=== PATIENT | female | born 1930 | race Caucasian/White ===

== ENCOUNTER 2018-09-02 14:55 | Emergency (ER) | payer SELFPAY ==
[~2018-09-02] VITALS: Ht 152.4 cm; Wt 86.0 kg
[2018-09-02] MEDS ORDERED: KETOROLAC 30MG/ML VIAL IM ONE (15:45)
[2018-09-02 16:43] VITALS: BP 160/61
== END 2018-09-02 16:40 | disposition home or self-care (01) ==
LOC: ER 14:55
DX: S46.811A Strain of other muscles, fascia and tendons at shoulder and upper arm level, right arm, initial encounter (principal); E11.9 Type 2 diabetes mellitus without complications; I10 Essential (primary) hypertension; X58.XXXA Exposure to other specified factors, initial encounter; Y93.89 Activity, other specified; Y92.89 Other specified places as the place of occurrence of the external cause; Y99.8 Other external cause status
CPT/HCPCS: 96372; 99283; J1885

== ENCOUNTER 2020-12-27 17:24 | Inpatient (IN) | payer MEDICAID ==
[~2020-12-27] VITALS: Ht 142.2 cm; Wt 81.2 kg
[2020-12-27 18:34] LABS: EOSINOPHILS % 2.7 % (0.0-5.0); HEMATOCRIT. 36.1 % (36.0-48.0); HEMOGLOBIN. 11.9 g/dL (12.0-16.0); LYMPHOCYTES % 23.3 % (20.0-50.0); MEAN CORPUSCULAR HEMOGLOBIN 28.5 pg (28.0-32.0); MEAN CORPUSCULAR VOLUME 86.9 fL (81.0-99.0); MEAN PLATELET VOLUME 8.9 fl (7.4-10.4); MONOCYTES % 6.8 % (2.0-8.0); NEUTROPHILS % 66.2 % (40.0-76.0); PLATELET 286 x1000/uL (130-400); RED BLOOD CELL COUNT 4.16 mill/uL (4.2-5.4)
[2020-12-27 18:37] LABS: CHLORIDE 108 mEq/L (98-107); INR 1.1
[2020-12-27] MEDS ORDERED: ATROPINE SULFATE 1MG/ML VIAL IV ONE (20:30)
[2020-12-27] MEDS ORDERED: ATROPINE SULFATE 1MG/10ML SYR IV ONE (21:15)
[2020-12-27] MEDS ORDERED: DEXTROSE 50% WATER 50ML SYRINGE IV NR (23:45)
[2020-12-28] VITALS (44 sets, daily range): BP systolic 111–230; BP diastolic 35–182
[2020-12-28] MEDS: HYDRALAZINE 20MG/ML VIAL IV PRN ×2 (07:06→12:09)
[2020-12-28] MEDS ORDERED: ACETAMINOPHEN 325MG TABLET PO PRN (08:15)
[2020-12-28] MEDS ORDERED: ONDANSETRON HCL 4MG/2ML INJ IV PRN (08:15)
[2020-12-28] MEDS ORDERED: DEXTROSE 50% WATER 50ML SYRINGE IV PRN (08:15)
[2020-12-28] MEDS: INSULIN LISPRO 100 UNITS/ML SUBCUT SCH ×4 (08:20→21:00)
[2020-12-28] MEDS: AMLODIPINE 10MG TABLET PO SCH (10:17)
[2020-12-28 10:34] LABS: HDL CHOLESTEROL 50 mg/dL (40-59); LDL CHOLESTEROL 47 mg/dL (5-100)
[2020-12-28] MEDS ORDERED: MV-M1TAB19 PO (11:09)
[2020-12-28] MEDS ORDERED: ASPI-1497 PO (11:09)
[2020-12-28] MEDS ORDERED: ALEN70TA79 PO (11:09)
[2020-12-28] MEDS ORDERED: AMLO5TAB4 PO (11:09)
[2020-12-28] MEDS ORDERED: ATOR40TA70 PO (11:09)
[2020-12-28] MEDS ORDERED: INSU100I28 SQ (11:09)
[2020-12-28] MEDS ORDERED: METF-873 PO (11:09)
[2020-12-28] MEDS ORDERED: HYDRALAZINE 20MG/ML VIAL IV ONE (12:15)
[2020-12-28] MEDS: BLOOD SUGAR DIAGNOSTIC STRIP TEST SCH ×3 (12:50→21:00)
[2020-12-28] MEDS ORDERED: HYDRALAZINE 20MG/ML VIAL IV NR (13:15)
[2020-12-28] MEDS: LOSARTAN POTASSIUM 50 MG TABLET PO SCH ×2 (14:10→21:41)
[2020-12-28] MEDS: FUROSEMIDE 40MG/4ML VIAL IVP SCH (14:10)
[2020-12-28] MEDS: CHOLECALCIFEROL (D3) 1000 UNIT TABLET PO SCH (14:13)
[2020-12-28] MEDS: ATORVASTATIN CALCIUM 40MG TABLET PO SCH (21:41)
[2020-12-29] VITALS (46 sets, daily range): BP systolic 74–190; BP diastolic 32–105
[2020-12-29] MEDS ORDERED: NOREPINEPHRINE 32 MG in DEXT 5% WATER 218 ML IV PRN (04:45)
[2020-12-29 05:32] LABS: BASOPHILS % 0.8 % (0.0-2.0); HEMATOCRIT. 33.2 % (36.0-48.0); HEMOGLOBIN. 10.7 g/dL (12.0-16.0); LYMPHOCYTES % 13.7 % (20.0-50.0); MEAN CORPUSCULAR HEMOGLOBIN 28.3 pg (28.0-32.0); MEAN CORPUSCULAR VOLUME 87.5 fL (81.0-99.0); MEAN PLATELET VOLUME 9.2 fl (7.4-10.4); MONOCYTES % 8.9 % (2.0-8.0); NEUTROPHILS % 75.6 % (40.0-76.0); PLATELET 252 x1000/uL (130-400); RED CELL DISTRIBUTION WIDTH 15.2 % (11.6-14.6)
[2020-12-29 05:37] LABS: CHLORIDE 105 mEq/L (98-107)
[2020-12-29] MEDS ORDERED: FENTANYL CITRATE/PF 50MCG/ML 2ML VIAL ONE (07:20)
[2020-12-29] MEDS ORDERED: GENTAMICIN/NS IRRIGATION 500 ML IR ONE (07:20)
[2020-12-29] MEDS ORDERED: GENTAMICIN SULF 40MG/ML 2ML VIAL ONE (07:20)
[2020-12-29] MEDS ORDERED: MIDAZOLAM HCL 2 MG/2 ML VIAL ONE ×2 (07:21→08:03)
[2020-12-29] MEDS ORDERED: IOHEXOL-300 100 ML BOTTLE ONE (07:24)
[2020-12-29] MEDS ORDERED: LIDOCAINE HCL 1% 20ML VIAL (Pyxis) INJ ONE (07:24)
[2020-12-29] MEDS: BLOOD SUGAR DIAGNOSTIC STRIP TEST SCH ×4 (07:50→20:48)
[2020-12-29] MEDS: HYDRALAZINE 20MG/ML VIAL IV PRN (09:22)
[2020-12-29] MEDS: FUROSEMIDE 40MG/4ML VIAL IVP SCH ×2 (09:27→16:40)
[2020-12-29] MEDS: INSULIN LISPRO 100 UNITS/ML SUBCUT SCH ×4 (09:38→20:53)
[2020-12-29] MEDS: CHOLECALCIFEROL (D3) 1000 UNIT TABLET PO SCH (10:34)
[2020-12-29] MEDS: CEFAZOLIN 1000MG PREMIX 50 ML IV SCH ×2 (10:34→18:46)
[2020-12-29] MEDS: AMLODIPINE 10MG TABLET PO SCH (10:35)
[2020-12-29] MEDS: LOSARTAN POTASSIUM 50 MG TABLET PO SCH ×2 (10:35→20:47)
[2020-12-29] MEDS ORDERED: HYDRALAZINE HCL 100MG TABLET PO NR (11:15)
[2020-12-29] MEDS: HYDRALAZINE HCL 100MG TABLET PO SCH ×2 (13:54→20:48)
[2020-12-29] MEDS: ATORVASTATIN CALCIUM 40MG TABLET PO SCH (20:47)
[2020-12-30] VITALS (11 sets, daily range): BP systolic 103–148; BP diastolic 47–112
[2020-12-30] MEDS: CEFAZOLIN 1000MG PREMIX 50 ML IV SCH (03:11)
[2020-12-30] MEDS ORDERED: HYDR12.54 PO (03:31)
[2020-12-30] MEDS ORDERED: *PATIENT'S OWN MEDICATION STORAGE XX SCH (04:00)
[2020-12-30] MEDS: HYDRALAZINE HCL 100MG TABLET PO SCH ×2 (06:15→14:00)
[2020-12-30] MEDS: BLOOD SUGAR DIAGNOSTIC STRIP TEST SCH ×3 (06:15→16:50)
[2020-12-30 07:11] LABS: BASOPHILS % 0.6 % (0.0-2.0); EOSINOPHILS % 1.5 % (0.0-5.0); HEMATOCRIT. 35.6 % (36.0-48.0); HEMOGLOBIN. 11.4 g/dL (12.0-16.0); LYMPHOCYTES % 15.1 % (20.0-50.0); MEAN CORPUSCULAR HEMOGLOBIN 27.8 pg (28.0-32.0); MEAN CORPUSCULAR VOLUME 86.9 fL (81.0-99.0); MEAN PLATELET VOLUME 9.1 fl (7.4-10.4); MONOCYTES % 7.7 % (2.0-8.0); NEUTROPHILS % 75.1 % (40.0-76.0); PLATELET 275 x1000/uL (130-400); RED BLOOD CELL COUNT 4.09 mill/uL (4.2-5.4); RED CELL DISTRIBUTION WIDTH 15.3 % (11.6-14.6)
[2020-12-30 07:25] LABS: CHLORIDE 102 mEq/L (98-107)
[2020-12-30] MEDS: LOSARTAN POTASSIUM 50 MG TABLET PO SCH (08:08)
[2020-12-30] MEDS: AMLODIPINE 10MG TABLET PO SCH (08:08)
[2020-12-30] MEDS: FUROSEMIDE 40MG/4ML VIAL IVP SCH ×2 (08:09→17:05)
[2020-12-30] MEDS: CHOLECALCIFEROL (D3) 1000 UNIT TABLET PO SCH (08:09)
[2020-12-30] MEDS: INSULIN LISPRO 100 UNITS/ML SUBCUT SCH ×2 (08:09→12:37)
[2020-12-30] MEDS ORDERED: POTASSIUM CHLORIDE 20MEQ TABLET SR PO SCH (09:00)
[2020-12-30] MEDS ORDERED: LOSA50TA3 PO (11:03)
[2020-12-30] MEDS ORDERED: POTA20TA82 MT (11:03)
[2020-12-30] MEDS ORDERED: FURO-151 MT (11:03)
[2020-12-30] MEDS ORDERED: HYDR100T26 PO (11:03)
[2020-12-30] MEDS ORDERED: METOPROLOL TARTRATE 25MG TABLET PO SCH (21:00)
== END 2020-12-30 17:00 | disposition home health service (06) | DRG 171 ==
LOC: ER 17:24 → EDBEDREQSVC 21:05 → EDBEDREQ 21:05 → EDBEDREQTM 21:05 → EDBEDREQSVC 21:19 → MICUSO 21:21 → CVICU 12-28 07:52 → 3WST 12-29 18:24
PROVIDERS: ADMIT Internal Medicine; ATTEND Internal Medicine
PROC: 02H63JZ Insertion of Pacemaker Lead into Right Atrium, Percutaneous Approach (ICD-10-PCS; principal; 2020-12-29)
PROC: 0JH606Z Insertion of Pacemaker, Dual Chamber into Chest Subcutaneous Tissue and Fascia, Open Approach (ICD-10-PCS; 2020-12-29)
PROC: 02HK3JZ Insertion of Pacemaker Lead into Right Ventricle, Percutaneous Approach (ICD-10-PCS; 2020-12-29)
DX: I44.2 Atrioventricular block, complete (principal); I50.43 Acute on chronic combined systolic (congestive) and diastolic (congestive) heart failure; E87.8 Other disorders of electrolyte and fluid balance, not elsewhere classified; E11.649 Type 2 diabetes mellitus with hypoglycemia without coma; E66.9 Obesity, unspecified; I16.0 Hypertensive urgency; F03.90 Unspecified dementia, unspecified severity, without behavioral disturbance, psychotic disturbance, mood disturbance, and anxiety; I11.0 Hypertensive heart disease with heart failure; Z20.822 Contact with and (suspected) exposure to COVID-19; Z68.41 Body mass index [BMI] 40.0-44.9, adult; Z79.899 Other long term (current) drug therapy; Z79.82 Long term (current) use of aspirin; Z79.4 Long term (current) use of insulin; Z71.3 Dietary counseling and surveillance
CPT/HCPCS: 33208; 36415; 71045; 75820; 80048; 80053; 80061; 82962; 83036; 83880; 84443; 84484; 85025; 87426; 93005; 93306; 93970; 97162; 99291; C1785; C1898; J0360; J0461; J0690; J1580; J1815; J1940; J2250; J3010; J3490; J7040; Q9967